=== PATIENT | male | born 1985 | race Hispanic/Latino ===

== ENCOUNTER 2019-01-06 14:31 | Emergency (ER) | payer OTHER ==
[2019-01-06 14:37] VITALS: BP 132/83; PULSE 86; RESP 20; TEMP 97.2; O2SAT 98
[2019-01-06] MEDS ORDERED: Sodium Chloride 0.9% 1,000 ML IV STA (15:06)
[2019-01-06 15:51] LABS: BASO % 0.1 % (0.0-2.0); EOS % 0.2 % (0.0-4.0); HEMOGLOBIN 14.9 g/dL (12.0-18.0); LYMPH # 0.9 K/uL (1.0-4.3); LYMPH % 5.8 % (20.0-40.0); MEAN CELL VOLUME 83.3 fl (80.0-94.0); MEAN CORPUSCULAR HEMOGLOBIN 28.3 pg (27.0-31.0); MEAN PLATELET VOLUME 7.8 fl (7.2-11.7); MONO # 0.6 K/uL (0.0-0.8); MONO % 4.1 % (0.0-10.0); NEUT # 13.4 K/uL (1.8-7.0); NEUT % 89.8 % (50.0-75.0); NRBC % 0.1 % (0.0-0.0); PLATELET COUNT 266 K/uL (130-400); RBC 5.27 Mil/uL (4.40-5.90); RED CELL DISTRIBUTION WIDTH 13.4 % (11.5-14.5)
[2019-01-06 16:01] LABS: ALB/GLOB RATIO 1.5 (1.0-2.1); ALBUMIN 4.9 g/dL (3.5-5.0); ALT/SGPT 44 U/L (21-72); AST/SGOT 35 U/L (17-59); BLOOD UREA NITROGEN 13 mg/dl (9-20); CALCIUM 9.7 mg/dL (8.4-10.2); GFR NON-AFRICAN AMERICAN > 60; URINE BILIRUBIN NEGATIVE (NEGATIVE); URINE BLOOD LARGE (NEGATIVE); URINE CLARITY CLOUDY (Clear); URINE COLOR YELLOW (YELLOW); URINE GLUCOSE (UA) NEG (NEGATIVE); URINE LEUKOCYTE ESTERASE NEG Leu/uL (Negative); URINE PROTEIN 100 mg/dL (NEGATIVE); URINE UROBILINOGEN 0.2-1.0 mg/dL (0.2-1.0)
--- NOTE | 2019-01-06 16:26 | ED PDOC ---
HPI: Abdomen Time Seen by Provider: 01/06/19 14:51 Chief Complaint (Nursing): Male Genitourinary Chief Complaint (Provider): Male Genitourinary History Per: Patient History/Exam Limitations: no limitations Onset/Duration Of Symptoms: Hrs (x2) Current Symptoms Are (Timing): Still Present Additional Complaint(s): 33 year old male with medical history of gout, presents to the emergency department for a sudden onset of RLQ that mildly radiates to groin associated with 3 episodes of vomiting ongoing for 2 hours prior to arrival. He denies nausea, vomiting, radiation of pain to testes or back. Patient reports that he recently changed to a more plant-based diet with minimal ingestion of chicken and tofu. He denies taking supplements including creatine or recently performing strenuous exertions. Additionally, he reports that his urine had a dark, orange appearance earlier today. Past Medical History Reviewed: Historical Data, Nursing Documentation, Vital Signs Vital Signs: Last Vital Signs Temp 97.2 F L 01/06/19 14:34 Pulse 86 01/06/19 14:34 Resp 20 01/06/19 14:34 BP 132/83 01/06/19 14:34 Pulse Ox 98 01/06/19 14:34 Primary Care Provider: FAMILY PROVIDER,NO - Medical History Other PMH: gout - Surgical History Surgical History: Tonsillectomy - Family History Family History: States: No Known Family Hx - Social History Current smoker - smoking cessation education provided: No Alcohol: Occasional Drugs: Cannabis, Other (mushroom) - Immunization History Hx Tetanus Toxoid Vaccination: No Hx Influenza Vaccination: No Hx Pneumococcal Vaccination: No - Home Medications Home Medications: Ambulatory Orders Medication Instructions Recorded Acetaminophen [Tylenol Extra 1,000 mg PO Q6 PRN #100 tablet 01/06/19 Strength] Ciprofloxacin [Cipro] 1 tab PO BID #14 tab 01/06/19 Codeine 15 mg PO Q6 PRN #12 tab 01/06/19 Ibuprofen [Motrin Tab] 600 mg PO Q8 PRN #60 tab 01/06/19 Ondansetron ODT [Zofran ODT] 1 odt PO Q6 PRN #20 odt 01/06/19 Tamsulosin [Flomax] 0.4 mg PO DAILY #14 cap 01/06/19 - Allergies Allergies/Adverse Reactions: Allergies Allergy/AdvReac Type Severity Reaction Status Date / Time Penicillins Allergy Mild mild Verified 01/06/19 14:34 Review of Systems ROS Statement: Except As Marked, All Systems Reviewed And Found Negative Gastrointestinal: Positive for: Vomiting, Abdominal Pain (RLQ). Negative for: Nausea, Diarrhea Genitourinary Male: Positive for: Penile Pain (groin). Negative for: Dysuria, Hematuria, Scrotal Pain Musculoskeletal: Negative for: Back Pain Physical Exam - Reviewed Nursing Documentation Reviewed: Yes Vital Signs Reviewed: Yes - Physical Exam Appears: Positive for: In Acute Distress (painful) Head Exam: Positive for: ATRAUMATIC, NORMOCEPHALIC Skin: Positive for: Warm, Dry Eye Exam: Positive for: EOMI, PERRL Respiratory: Negative for: Accessory Muscle Use, Respiratory Distress Gastrointestinal/Abdominal: Positive for: Soft, Tenderness (RLQ mildly on deep palpitation). Negative for: Mass, Distended, Guarding, Rebound Back: Positive for: Normal Inspection. Negative for: L CVA Tenderness, R CVA Tenderness, Vertebral Tenderness Neurological/Psych: Positive for: Awake, Alert. Negative for: Motor/Sensory Deficits - Laboratory Results Result Diagrams: 01/06/19 15:47 01/06/19 15:47 Lab Results: Total Bilirubin 1.4 mg/dl (0.2-1.3) H 01/06/19 15:47 AST 35 U/L (17-59) 01/06/19 15:47 ALT 44 U/L (21-72) 01/06/19 15:47 Alkaline Phosphatase 63 U/L (38-126) 01/06/19 15:47 Total Protein 8.1 G/DL (6.3-8.2) 01/06/19 15:47 Albumin 4.9 g/dL (3.5-5.0) 01/06/19 15:47 Globulin 3.2 gm/dL (2.2-3.9) 01/06/19 15:47 Albumin/Globulin Ratio 1.5 (1.0-2.1) 01/06/19 15:47 Urine Color Yellow (YELLOW) 01/06/19 15:47 Urine Clarity Cloudy (Clear) 01/06/19 15:47 Urine pH 6.0 (5.0-8.0) 01/06/19 15:47 Ur Specific [place] 1.026 (1.003-1.030) 01/06/19 15:47 Urine Protein 100 mg/dL (NEGATIVE) 01/06/19 15:47 Urine Glucose (UA) Neg mg/dL (NEGATIVE) 01/06/19 15:47 Urine Ketones Negative mg/dL (NEGATIVE) 01/06/19 15:47 Urine Blood Large (NEGATIVE) 01/06/19 15:47 Urine Nitrate Negative (NEGATIVE) 01/06/19 15:47 Urine Bilirubin Negative (NEGATIVE) 01/06/19 15:47 Urine Urobilinogen 0.2-1.0 mg/dL (0.2-1.0) 01/06/19 15:47 Ur Leukocyte Esterase Neg Martinez/uL (Negative) 01/06/19 15:47 Urine RBC (Auto) 3590 /hpf (0-3) H 01/06/19 15:47 - ECG O2 Sat by Pulse Oximetry: 98 (RA) Pulse Ox Interpretation: Normal Medical Decision Making Medical Decision Making: Initial Impression: abdominal pain Differential diagnosis includes but not limited to: renal colic; colitis; enteritis; adenitis Initial Plan: * CT ABD/pelvis * Labs * Flomax PO * IV fluids * Toradol IVP * Tylenol PO * Zofran IV * Urine culture Urine demonstrates large amount of RBCs. Bloodwork demonstrates leukocytosis. Time: 1633 --CT ABD/pelvis FINDINGS: LOWER THORAX: Unremarkable. LIVER: Normal size, contour and attenuation. Please note that immediately adjacent to or arising from the posterior right hepatic lobe there is a rounded mass measuring 10 mm in diameter, with partial peripheral calcification. Uncertain significance. There is no other hepatic mass identified. No biliary dilatation. GALLBLADDER AND BILE DUCTS: Unremarkable. PANCREAS: Unremarkable. No gross lesion or ductal dilatation. SPLEEN: Unremarkable. ADRENALS: Unremarkable. No mass. KIDNEYS AND URETERS: Multiple bilateral small nonobstructing renal calculi. Largest right renal calculus is in the upper pole, measuring 7 mm. Largest left renal calculus measures 5 mm, in the upper pole. No hydronephrosis. There is a 5 mm calculus in the proximal 3rd of the right ureter without resulting proximal hydroureter or hydronephrosis. No perinephric fluid. VASCULATURE: Unremarkable. No aortic aneurysm. No aortic atherosclerotic calcification or mural plaque present. BOWEL: Unremarkable. No obstruction. No gross mural thickening. APPENDIX: Unremarkable. Normal appendix. PERITONEUM: Unremarkable. No free fluid. No free air. LYMPH NODES: Unremarkable. No enlarged lymph nodes. BLADDER: Nondistended REPRODUCTIVE: Normal prostate BONES: No acute fracture. OTHER FINDINGS: None. IMPRESSION: Multiple small bilateral nonobstructing renal calculi. There is a 5 mm proximal right ureteral calculus without proximal hydronephrosis or hydroureter. I ncidental small peripherally calcified nodule exophytic arising from the posterior right hepatic lobe, 10 mm diameter. Uncertain significance. No additional abnormality Pt's pain improved in ER. DW pt findings and plan of care at length. Possibility of need for procedure vs spontaneous resolution discussed and need for close followup with urology. Return parameters discussed as well. All questions/concerns answered/addressed. Stable for discharge. Scribe Attestation: Documented by Brooklyn Barreto, acting as a scribe for Cindi Rebollar MD . Provider Scribe Attestation: All medical record entries made by the Scribe were at my direction and persona lly dictated by me. I have reviewed the chart and agree that the record accurately reflects my personal performance of the history, physical exam, medical decision making, and the department course for this patient. I have also personally directed, reviewed, and agree with the discharge instructions and disposition. Disposition - Clinical Impression Clinical Impression: Kidney stones Counseled Patient/Family Regarding: Studies Performed, Diagnosis, Need For Followup, Rx Given - Disposition Referrals: Kal Moreno Jr., MD [Staff Provider] - (CALL DR MORENO FOR FOLLOWUP APPOINTMENT THIS WEEK) Disposition: Routine/Home Disposition Time: 18:36 Condition: IMPROVED Additional Instructions: DRINK PLENTY OF HYDRATING FLUIDS FOLLOWUP WITH DR MORENO OR YOUR UROLOGIST BY THE END OF WEEK Prescriptions: Acetaminophen [Tylenol Extra Strength] 1,000 mg PO Q6 PRN #100 tablet PRN Reason: FEVER OR PAIN Ciprofloxacin [Cipro] 1 tab PO BID #14 tab Codeine 15 mg PO Q6 PRN #12 tab PRN Reason: SEVERE PAIN ONLY Ibuprofen [Motrin Tab] 600 mg PO Q8 PRN #60 tab PRN Reason: Pain, Moderate (4-7) Ondansetron ODT [Zofran ODT] 1 odt PO Q6 PRN #20 odt PRN Reason: Nausea/Vomiting Tamsulosin [Flomax] 0.4 mg PO DAILY #14 cap Instructions: Kidney Stones (DC), Opioids for Short-Term Treatment of Pain Forms: [facility] ED School/Work Excuse
[2019-01-06 16:30] LABS: EOSINOPHIL 1 % (0-7); PLATELET ESTIMATE NORMAL (NORMAL)
[2019-01-06 16:31] LABS: BANDS 4 % (0-2); LYMPHOCYTE 6 % (20-50); MONOCYTE 7 % (0-10); NEUTROPHIL 82 % (42-75); TOTAL CELLS COUNTED 100
--- NOTE | 2019-01-06 16:36 | CT ---
Date of service: 01/06/2019 PROCEDURE: CT Abdomen and Pelvis without intravenous contrast HISTORY: left flank pain COMPARISON: None. TECHNIQUE: Without contrast.. Contrast dose: 0 Radiation dose: Total exam DLP = 915.35 mGy-cm. This CT exam was performed using one or more of the following dose reduction techniques: Automated exposure control, adjustment of the mA and/or kV according to patient size, and/or use of iterative reconstruction technique. FINDINGS: LOWER THORAX: Unremarkable. LIVER: Normal size, contour and attenuation. Please note that immediately adjacent to or arising from the posterior right hepatic lobe there is a rounded mass measuring 10 mm in diameter, with partial peripheral calcification. Uncertain significance. There is no other hepatic mass identified. No biliary dilatation. GALLBLADDER AND BILE DUCTS: Unremarkable. PANCREAS: Unremarkable. No gross lesion or ductal dilatation. SPLEEN: Unremarkable. ADRENALS: Unremarkable. No mass. KIDNEYS AND URETERS: Multiple bilateral small nonobstructing renal calculi. Largest right renal calculus is in the upper pole, measuring 7 mm. Largest left renal calculus measures 5 mm, in the upper pole. No hydronephrosis. There is a 5 mm calculus in the proximal 3rd of the right ureter without resulting proximal hydroureter or hydronephrosis. No perinephric fluid. VASCULATURE: Unremarkable. No aortic aneurysm. No aortic atherosclerotic calcification or mural plaque present. BOWEL: Unremarkable. No obstruction. No gross mural thickening. APPENDIX: Unremarkable. Normal appendix. PERITONEUM: Unremarkable. No free fluid. No free air. LYMPH NODES: Unremarkable. No enlarged lymph nodes. BLADDER: Nondistended REPRODUCTIVE: Normal prostate BONES: No acute fracture. OTHER FINDINGS: None. IMPRESSION: Multiple small bilateral nonobstructing renal calculi. There is a 5 mm proximal right ureteral calculus without proximal hydronephrosis or hydroureter. Incidental small peripherally calcified nodule exophytic arising from the posterior right hepatic lobe, 10 mm diameter. Uncertain significance. No additional abnormality
[2019-01-06 17:05] LABS: BARBITURATES, UR NEGATIVE (NEGATIVE); BENZODIAZEPINES, UR NEGATIVE (NEGATIVE); OPIATES, UR NEGATIVE (NEGATIVE); PHENCYCLIDINE, UR NEGATIVE (NEGATIVE)
== END 2019-01-06 19:21 | disposition home or self-care (01) ==
LOC: H.ER 14:31
DX: N20.0 Calculus of kidney (principal); M10.9 Gout, unspecified; Z79.899 Other long term (current) drug therapy; Z88.0 Allergy status to penicillin
CPT/HCPCS: 74176; 80053; 80324; 80345; 80346; 80349; 80353; 80358; 80361; 81003; 83992; 85025; 87086; 96361; 96374; 96375; 99283; J1885; J2405; J7030